=== PATIENT | male | born 1930 | race Caucasian/White ===

== ENCOUNTER 2017-03-07 09:57 | Emergency (ER) | payer MEDICARE, OTHER ==
--- NOTE | 2017-03-07 10:30 | ERPHSYRPT ---
- History of Present Illness Time Seen by Provider: 03/07/17 10:23 Source: patient Exam Limitations: no limitations Patient Subjective Stated Complaint: fall at 0900 Triage Nursing Assessment: fall at 0900--fell back from stool. c/o mid back pain and post head pain. denies loc. no swelling or bruising to mid back--pain with palpation. abrasion to post head. pupils toro Physician History: The patient is an 87-year-old male with his complaining of falling backwards while seated on a stool in the basement, causing him to hit the back of his head and his mid back on a concrete floor. He did not lose consciousness. He states his head hurts and his mid back hurts. He denies shortness of breath. His past medical history is significant for seizure disorder, hypertension, arthritis, and high cholesterol. Occurred: just prior to arrival Reason for Fall: lost balance Injuries/Pain Location: head, back Loss of Consciousness: no loss of consciousness Quality: aching Severity of Pain-Max: moderate Severity of Pain-Current: moderate Modifying Factors: Improves With: nothing Associated Symptoms (Fall): back pain Allergies/Adverse Reactions: acetaminophen [From Tylenol] Adverse Reaction (Verified 03/07/17 10:14) Home Medications: Atorvastatin Calcium [Lipitor] 10 mg PO DAILY 03/07/17 [History] Clopidogrel Bisulfate 75 mg [PLAVIX 75 MG Tablet] 75 mg PO DAILY 03/07/17 [History] Lisinopril [Zestril] 2.5 mg PO DAILY 03/07/17 [History] Metoprolol Tartrate 50 mg [Lopressor 50 MG] 50 mg PO BID 03/07/17 [History ] Phenobarb 32.4 mg [Phenobarbital 32.4 mg] 32.4 mg PO BID 03/07/17 [History ] Phenytoin Sod Extended 100 mg* [Dilantin 100 MG] 100 mg PO QID 03/07/17 [ History] Hx Tetanus, Diphtheria Vaccination/Date Given: No Hx Influenza Vaccination/Date Given: Yes Hx Pneumococcal Vaccination/Date Given: No Immunizations Up to Date: No - Review of Systems Constitutional: No Fever, No Chills Eyes: No Symptoms Ears, Nose, & Throat: No Symptoms Respiratory: No Cough, No Dyspnea Cardiac: No Chest Pain, No Edema, No Syncope Abdominal/Gastrointestinal: No Abdominal Pain, No Nausea, No Vomiting, No Diarrhea Genitourinary Symptoms: No Dysuria Musculoskeletal: Fall, Injury Skin: No Rash Neurological: No Dizziness, No Focal Weakness, No Sensory Changes Psychological: No Symptoms Endocrine: No Symptoms Hematologic/Lymphatic: No Symptoms Immunological/Allergic: No Symptoms All Other Systems: Reviewed and Negative - Past Medical History Pertinent Past Medical History: Yes Neurological History: Seizures Cardiac History: Hypertension Other Medical History: poor historian - Past Surgical History Past Surgical History: Yes Cardiac: CABG, Cardiac Catheterization, Cardiac Stent Musculoskeletal: Orthopedic Surgery Other Surgical History: artifical toe. poor historian - Social History Smoking Status: Never smoker Exposure to second hand smoke: No Drug Use: none Patient Lives Alone: No - Nursing Vital Signs Nursing Vital Signs: Initial Vital Signs Temperature 97.7 F Temperature Source Oral Pulse Rate 54 Respiratory Rate 18 Blood Pressure [Right Arm] 167/93 Pain Intensity 7 - Newsoms Coma Score Best Eye Response (Mohinder): (4) open spontaneously Best Verbal Response (Newsoms): (5) oriented Best Motor Response (Mohinder): (6) obeys commands Newsoms Total: 15 - Physical Exam General Appearance: mild distress Head Injury: contusions, tenderness (occiput) Eye Exam: PERRL/EOMI ENT Exam: airway nml Neck Exam: pain on movement of neck, tenderness Respiratory/Chest Exam: normal breath sounds, No chest tenderness, No respiratory distress Cardiovascular Exam: normal heart sounds, regular rate/rhythm Gastrointestinal Exam: soft, No tenderness, No distention, No guarding, No ecchymosis Rectal Exam: not done Back Exam: vertebral tenderness, decreased range of motion Extremity Exam: normal inspection, normal range of motion, pelvis stable, No deformities Neurologic Exam: alert, oriented x 3, cooperative, sensation nml, No motor deficits Skin Exam: normal color, warm, dry SpO2 Interpretation: normal SpO2: 97 Oxygen Delivery: Room Air - CT Exams Head CT Interpretation: Negative, Tele-radiologist Report, Other (non acute senile brain per DR Ruiz.) Cervical Spine CT Interpretation: Negative, Tele-radiologist Report, No Fracture (per Dr Ruiz) Thoracic Spine CT Interpretation: Negative, Tele-radiologist Report, No Fracture (per Dr Ruiz) Ordered Tests: Active Orders 24 hr Category Date Time Status CERVICAL SPINE WO CONTRAST [CT] Stat Exams 04/21/17 10:35 Completed HEAD WITHOUT CONTRAST [CT] Stat Exams 03/07/17 10:35 Completed THORACIC SPINE W/O CONTRAST [CT] Stat Exams 03/07/17 10:35 Completed - Progress Progress: unchanged (declines analgesics) - Departure Time of Disposition: 11:50 Departure Disposition: Home Clinical Impression: Multiple contusions Condition: Stable Critical Care Time: No Additional Instructions: You have multiple contusions, one to the back of the head and one to the mid back area. The CT scans did not show any fractures. Apply ice as needed to the areas. Follow-up as needed.
--- NOTE | 2017-03-07 11:31 | XRAY ---
Indication: Pain following fall. Multiple contiguous axial images obtained through the head without contrast. Comparison: None Age-appropriate global atrophy and mild periventricular degenerative micro-ischemia bilaterally. No acute intracranial hemorrhage, abnormal extra-axial fluid collection, or mass effect. Fourth ventricle is midline without hydrocephalus. Bony calvarium intact. Mild mucosal thickening of both ethmoid sinuses with small left maxillary sinus fluid leveling. Mastoid air cells are pneumatized and clear. Impression: 1. Nonacute senile brain. 2. Incidental paranasal sinus disease. CT DI 48.76
--- NOTE | 2017-03-07 11:36 | XRAY ---
Indication: Neck pain following fall. Multiple contiguous axial images obtained through the cervical spine. Sagittal and coronal reformatted images obtained. Comparison: None Osseous structures demineralized consistent with patient's age. Anatomic variant for nonunited posterior arch of C1. Axial images negative for acute fracture, suspicious bony lesions, or spinal canal stenosis. Mild/moderate C3-C7 degenerative endplate spurring, greatest at the C6-C7 level. Same level also demonstrates tiny subcortical cysts. Mild multilevel bilateral degenerative facet arthropathy. Sagittal and coronal reformatted images demonstrates normal alignment with mild multilevel degenerative disc space narrowing greatest at the C6-C7 level. No acute compression fracture, subluxation, or jumped facet. Normal appearing craniocervical junction. Visualized noncontrasted soft tissues demonstrates mild bilateral carotid calcifications bilaterally. Lung apices clear. CT head reported separately. Impression: 1. Negative for acute fracture/subluxation. 2. Osteopenia and multilevel degenerative changes. CT DI 103.52
--- NOTE | 2017-03-07 11:44 | XRAY ---
Indication: Back pain following fall. Multiple contiguous axial images obtained through the thoracic spine. Sagittal and coronal reformatted images obtained. Comparison: None Osseous structures demineralized consistent with patient's age. Axial images negative for acute fracture, suspicious bony lesions, or spinal canal stenosis. There is multilevel bridging/nonbridging endplate osteophytes. Sagittal and coronal reformatted images demonstrates normal alignment with small T8-T11 Schmorl nodes. Superior plates of T5-T7 demonstrates very minimal concave deformity either developmental versus old injury. No acute compression fracture or subluxation. Visualized soft tissues demonstrates bilateral dependent atelectasis and left lung calcified granulomas. Impression: 1. Very minimal T5-T7 superior endplate concave deformities felt to be developmental versus old injury. 2. Negative for acute fracture/subluxation. 3. Osteopenia, multilevel degenerative endplate osteophytes, and T8-T11 Schmorl nodes. 4. Incidental evidence for old granulomatous disease CT DI 103.52
[2017-03-07 12:03] VITALS: BP 140/80; PULSE 52; O2SAT 96
== END 2017-03-07 12:00 | disposition home or self-care (01) ==
LOC: ED 09:57
DX: S00.83XA Contusion of other part of head, initial encounter (principal); S20.229A Contusion of unspecified back wall of thorax, initial encounter; W17.89XA Other fall from one level to another, initial encounter
CPT/HCPCS: 70450; 72125; 72128; 99284